=== PATIENT | female | born 1995 | race Caucasian/White ===

== ENCOUNTER 2016-12-28 23:29 | Emergency (ER) | payer OTHER ==
[2016-12-28 23:40] VITALS: TEMP 99.1
[2016-12-29 01:07] LABS: Appearance,Urine Clear (Clear); Bilirubin,Urine Negative (Negative); Glucose,Urine (UA) Negative (Negative); Ketones,Urine Negative (Negative); Leukocyte Esterase,Urine Negative (Negative); Nitrite,Urine Negative (Negative); PH, Urine 5.5 (5.0-8.0); Protein,Urine Negative (Negative); Specific Gravity,Urine 1.006 (1.001-1.035); UA Billing (MACRO vs. MICRO) CHEM; Urobilinogen,Urine <2.0 mg/dL (<2.0)
[2016-12-29] MEDS ORDERED: IBUPROFEN 600 MG TAB PO STA (01:21)
[2016-12-29] MEDS ORDERED: ACET/COD 300 MG/30 MG STARTER PACK 6 TAB BTL PO STA (01:21)
--- NOTE | 2016-12-29 01:34 | US ---
EXAM: US Pelvis, Transvaginal CLINICAL HISTORY: Reason: Pain TECHNIQUE: Real-time transvaginal pelvic ultrasound (complete) with image documentation. Transvaginal imaging was used for better evaluation of the endometrium and adnexa. COMPARISON: None FINDINGS: Uterus/cervix: Uterus is retroverted with a length of 8 cm. Normal junctional zone. Endometrium is measured at 1.1 cm thickness, likely slightly overestimated though still within normal range. No myometrial mass. Right ovary: The right ovary measures 2.4 x 1.9 x 1.37 m and demonstrate small normal follicles and appropriate Doppler flow. Left ovary: Left ovary measures 3.6 x 3.0 x 3.0 cm. There is a dominant cyst of the left ovary measuring 3 cm length with a small septation, likely physiologic. There is normal flow to the left ovary. Free fluid: Mild free fluid, likely physiologic. Bladder: Empty bladder which cannot be evaluated with this probe. IMPRESSION: Mild free fluid, likely physiologic given the patient age. 3 cm benign cyst in the left ovary.
[2016-12-29] MEDS ORDERED: cefTRIAXone 250 MG VIAL IM STA (01:46)
[2016-12-29] MEDS ORDERED: AZITHROMYCIN 500 MG TAB PO STA (01:46)
[2016-12-29] MEDS ORDERED: ONDANSETRON 4 MG ODT STARTER PACK 2 TAB BTL PO STA (01:52)
--- NOTE | 2016-12-29 01:52 | ED ---
Abdominal Pain HPI - General Chief Complaint: Abdominal Pain Stated Complaint: pelvic pain,vomiting Time Seen by Provider: 12/29/16 00:19 Source: patient, RN notes reviewed Mode of arrival: ambulatory Limitations: no limitations - Related Data Home Medications Medication Instructions Recorded Confirmed Acetaminophen-Codeine 300-30mg 1 tab PO QID PRN 12/28/16 12/28/16 [Tylenol w/codeine #3] Cyclobenzaprine [Flexeril] 0.5 tab PO TID PRN 12/28/16 12/28/16 Previous Rx's Medication Instructions Recorded traMADol HCl [Ultram] 50 mg PO Q6H PRN #10 tab 12/29/16 Allergies Allergy/AdvReac Type Severity Reaction Status Date / Time No Known Allergies Allergy Verified 12/28/16 23:40 Review of Systems ROS Statement: Those systems with pertinent positive or pertinent negative responses have been documented in the HPI. ROS Other: All systems not noted in ROS Statement are negative. Past Medical History Past Medical History: Asthma History of Any Multi-Drug Resistant Organisms: None Reported Additional Past Surgical History / Comment(s): eye surgery Past Psychological History: No Psychological Hx Reported Smoking Status: Current every day smoker Past Alcohol Use History: None Reported Past Drug Use History: None Reported General Exam Limitations: no limitations Course Vital Signs 12/28/16 23:37 Temperature 99.1 F Pulse Rate 71 Respiratory 18 Rate Blood Pressure 116/63 O2 Sat by Pulse 100 Oximetry Medical Decision Making - Lab Data Lab Results 12/29/16 12/29/16 12/29/16 Range/Units 00:30 00:30 01:20 Urine Color Light Yellow Urine Appearance Clear (Clear) Urine pH 5.5 (5.0-8.0) Ur Specific [place] 1.006 (1.001-1.035) Urine Protein Negative (Negative) Urine Glucose (UA) Negative (Negative) Urine Ketones Negative (Negative) Urine Blood Negative (Negative) Urine Nitrite Negative (Negative) Urine Bilirubin Negative (Negative) Urine Urobilinogen <2.0 (<2.0) mg/dL Ur Leukocyte Esterase Negative (Negative) Urine HCG, Qual Not Detected (Not Detectd) Trichomonas Ag (Rapid) Negative (Negative) Disposition Clinical Impression: Cervicitis, Left ovarian cyst Disposition: HOME SELF-CARE Condition: Good Instructions: Cervicitis (ED) Additional Instructions: Patient advised to follow up with primary care provider and WHEEL BRAIDER. Take medication as prescribed. Return to the emergency department if any alarming signs or symptoms occur. Prescriptions: traMADol HCl [Ultram] 50 mg PO Q6H PRN #10 tab PRN Reason: Pain Referrals: Sara Bernard MD [STAFF PHYSICIAN] - 1-2 days Time of Disposition: 01:48
[2016-12-29 02:09] VITALS: BP 110/54; PULSE 78; RESP 16
== END 2016-12-29 02:23 | disposition home or self-care (01) ==
LOC: EC 23:29
DX: N72 Inflammatory disease of cervix uteri (principal); N83.202 Unspecified ovarian cyst, left side; R11.10 Vomiting, unspecified; F17.200 Nicotine dependence, unspecified, uncomplicated
CPT/HCPCS: 87591; 87491; 81003; 81025; 87808; 87070; 93975; 76830; 99284; 96372; J0696; S0119; 87205

== ENCOUNTER 2017-11-02 15:10 | Emergency (ER) | payer OTHER ==
[2017-11-02 15:27] VITALS: BP 109/68; PULSE 80; RESP 20; TEMP 98.1
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
== END 2017-11-02 16:40 | disposition home or self-care (01) ==
LOC: EC 15:10
DX: O9A.311 Physical abuse complicating pregnancy, first trimester (principal); O99.331 Smoking (tobacco) complicating pregnancy, first trimester; F17.200 Nicotine dependence, unspecified, uncomplicated; Z3A.14 14 weeks gestation of pregnancy; Y04.8XXA Assault by other bodily force, initial encounter; Y92.009 Unspecified place in unspecified non-institutional (private) residence as the place of occurrence of the external cause; Y07.59 Other non-family member, perpetrator of maltreatment and neglect
CPT/HCPCS: 99284

== ENCOUNTER 2017-12-08 02:46 | Emergency (ER) | payer OTHER ==
[2017-12-08] MEDS ORDERED: ACETAMINOPHEN TAB 500 MG TAB PO STA (03:17)
--- NOTE | 2017-12-08 03:27 | ED ---
General Adult HPI - General Source: patient, EMS, RN notes reviewed, old records reviewed Mode of arrival: EMS Limitations: no limitations <Geeta Brady - Last Filed: 12/08/17 03:17> <Andrey Dugan - Last Filed: 12/08/17 04:58> - General Chief complaint: Abdominal Pain Stated complaint: Fall Time Seen by Provider: 12/08/17 03:05 - History of Present Illness Initial comments: This is a 22-year-old female who presents to the emergency department with chief complaint of abdominal pain following a fall. Patient states that at 1 PM this evening she was walking down a set of stairs at work while carrying a large bag. She states that she slipped and landed flat on her stomach. Patient reports that she is currently 5 months . She states that since the incident she has been experiencing lower abdominal cramping. Denies any vaginal bleeding. States that the right side of her low back is painful. Denies saddle paresthesias or loss of bladder or bowel function. She states that she has been bearing weight and ambulating normally. Patient did present to [facility] where heart tones were normal. Patient was transferred to this facility because we have CLOSING AGENT coverage. Patient denies any other injuries or trauma. Denies recent fevers or chills, nausea or vomiting, diarrhea or constipation, dysuria or hematuria. (Geeta Brady) - Related Data Home Medications Medication Instructions Recorded Confirmed Acetaminophen-Codeine 300-30mg 1 tab PO QID PRN 12/28/16 12/28/16 [Tylenol w/codeine #3] Cyclobenzaprine [Flexeril] 0.5 tab PO TID PRN 12/28/16 12/28/16 Previous Rx's Medication Instructions Recorded traMADol HCl [Ultram] 50 mg PO Q6H PRN #10 tab 12/29/16 Xxo-Ymjr-Jafnx Acid 1 cap PO DAILY #30 cap 11/02/17 [-U Capsule (formulary)] Allergies Allergy/AdvReac Type Severity Reaction Status Date / Time No Known Allergies Allergy Verified 11/02/17 15:27 Review of Systems ROS Other: All systems not noted in ROS Statement are negative. <Geeta Brady - Last Filed: 12/08/17 03:17> ROS Other: All systems not noted in ROS Statement are negative. <TaniyaAndrey dennis - Last Filed: 12/08/17 04:58> ROS Statement: Those systems with pertinent positive or pertinent negative responses have been documented in the HPI. Past Medical History Past Medical History: Asthma Additional Past Medical History / Comment(s): scoliosis History of Any Multi-Drug Resistant Organisms: None Reported Additional Past Surgical History / Comment(s): eye surgery Past Psychological History: No Psychological Hx Reported Smoking Status: Current every day smoker Past Alcohol Use History: None Reported Past Drug Use History: None Reported <Geeta Brady - Last Filed: 12/08/17 03:17> General Exam Limitations: no limitations Back exam: Present: normal inspection, full ROM, tenderness (right lumbar region. no bruising, redness or swelling noted. ). Absent: vertebral tenderness <Geeta Brady - Last Filed: 12/08/17 03:17> <RitchieAndrey - Last Filed: 12/08/17 04:58> - General Exam Comments Initial Comments: General: Awake and alert, well-developed; in no apparent distress. Lying comfortably on ED stretcher. HEENT: Head atraumatic, normocephalic. Pupils are equal, round and reactive to light. Extraocular movements intact. Oropharynx moist without erythema or exudate. Neck: Supple. Normal ROM. Cardiovascular: Regular rate and rhythm. No murmurs, rubs or gallops. Chest symmetrical. Respiratory: Lungs clear to auscultation bilaterally. No wheezes, rales or rhonchi. Normal respiratory effort with no use of accessory muscles. Abdomen: Soft, non-tender, non-distended. No rigidity, rebound or guarding. Musculoskeletal: Normal ROM, no tenderness bilateral upper and lower extremities. Ambulating normally. Skin: [place], warm and dry without rashes or lesions. Neurological: Alert and oriented x3. CN II-XII grossly intact. Speech is fluent and answers are appropriate. No focal neuro deficits. Psychiatric: Normal mood and affect. No overt signs of depression or anxiety noted. (Geeta Brady) Vital Signs 12/08/17 02:49 Temperature 98.2 F Pulse Rate 75 Respiratory 19 Rate Blood Pressure 115/58 O2 Sat by Pulse 100 Oximetry Medical Decision Making - Lab Data Result diagrams: 12/08/17 03:22 12/08/17 03:22 <Andrey Dugan - Last Filed: 12/08/17 04:58> - Lab Data Lab Results 12/08/17 12/08/17 12/08/17 Range/Units 03:22 03:22 03:25 WBC 9.5 (3.8-10.6) k/uL RBC 3.64 L (3.80-5.40) m/uL Hgb 11.1 L (11.4-16.0) gm/dL Hct 33.1 L (34.0-46.0) % MCV 90.9 (80.0-100.0) fL MCH 30.6 (25.0-35.0) pg MCHC 33.7 (31.0-37.0) g/dL RDW 12.4 (11.5-15.5) % Plt Count 248 (150-450) k/uL Neutrophils % 72 % Lymphocytes % 23 % Monocytes % 4 % Eosinophils % 1 % Basophils % 0 % Neutrophils # 6.8 (1.3-7.7) k/uL Lymphocytes # 2.2 (1.0-4.8) k/uL Monocytes # 0.3 (0-1.0) k/uL Eosinophils # 0.1 (0-0.7) k/uL Basophils # 0.0 (0-0.2) k/uL Sodium 138 (137-145) mmol/L Potassium 3.6 (3.5-5.1) mmol/L Chloride 110 H (98-107) mmol/L Carbon Dioxide 19 L (22-30) mmol/L Anion Gap 9 mmol/L BUN 5 L (7-17) mg/dL Creatinine 0.38 L (0.52-1.04) mg/dL Est GFR (CKD-EPI)AfAm >90 (>60 ml/min/1.73 sqM) Est GFR (CKD-EPI)NonAf >90 (>60 ml/min/1.73 sqM) Glucose 74 (74-99) mg/dL Calcium 8.6 (8.4-10.2) mg/dL Total Bilirubin 0.4 (0.2-1.3) mg/dL AST 13 L (14-36) U/L ALT 23 (9-52) U/L Alkaline Phosphatase 71 (38-126) U/L Total Protein 5.8 L (6.3-8.2) g/dL Albumin 3.2 L (3.5-5.0) g/dL HCG, Quant 83217.5 mIU/mL Urine Color Light Yellow Urine Appearance Clear (Clear) Urine pH 6.5 (5.0-8.0) Ur Specific [place] 1.005 (1.001-1.035) Urine Protein Negative (Negative) Urine Glucose (UA) Negative (Negative) Urine Ketones Negative (Negative) Urine Blood Negative (Negative) Urine Nitrite Negative (Negative) Urine Bilirubin Negative (Negative) Urine Urobilinogen <2.0 (<2.0) mg/dL Ur Leukocyte Esterase Negative (Negative) Disposition <Geeta Brady - Last Filed: 12/08/17 03:17> Is patient prescribed a controlled substance at d/c from ED?: No - Out of Hospital Transfer - Req. Specs Out of Hospital Transfer - Requested Specifics: Other Non-Acute <Andrey Dugan - Last Filed: 12/08/17 04:58> Clinical Impression: Abdominal pain Disposition: OTHER INSTITUTION NOT DEFINED Condition: Fair Instructions: Abdominal Pain in (ED) Referrals: None,Stated [Primary Care Provider] - 1-2 days
[2017-12-08 03:31] LABS: Basophils % (A) 0 %; Eosinophils # (A) 0.1 k/uL (0-0.7); Eosinophils % (A) 1 %; HCT 33.1 % (34.0-46.0); HGB 11.1 gm/dL (11.4-16.0); Lymphocytes # (A) 2.2 k/uL (1.0-4.8); Lymphocytes % (A) 23 %; MCH 30.6 pg (25.0-35.0); MCHC 33.7 g/dL (31.0-37.0); MCV 90.9 fL (80.0-100.0); Mean Platelet Volume 6.8; Monocytes # (A) 0.3 k/uL (0-1.0); Monocytes % (A) 4 %; Neutrophils # (A) 6.8 k/uL (1.3-7.7); Neutrophils % (A) 72 %; Platelet Count 248 k/uL (150-450); RBC 3.64 m/uL (3.80-5.40); RDW 12.4 % (11.5-15.5); WBC 9.5 k/uL (3.8-10.6)
[2017-12-08 03:37] LABS: Appearance,Urine Clear (Clear); Bilirubin,Urine Negative (Negative); Blood,Urine Negative (Negative); Color,Urine Light Yellow; Glucose,Urine (UA) Negative (Negative); Ketones,Urine Negative (Negative); Leukocyte Esterase,Urine Negative (Negative); Nitrite,Urine Negative (Negative); PH, Urine 6.5 (5.0-8.0); Protein,Urine Negative (Negative); Specific Gravity,Urine 1.005 (1.001-1.035); Urobilinogen,Urine <2.0 mg/dL (<2.0)
[2017-12-08 03:40] LABS: ALT 23 U/L (9-52); AST 13 U/L (14-36); Albumin 3.2 g/dL (3.5-5.0); Alkaline Phosphatase 71 U/L (38-126); Anion Gap 9 mmol/L; Blood Urea Nitrogen 5 mg/dL (7-17); Calcium 8.6 mg/dL (8.4-10.2); Carbon Dioxide 19 mmol/L (22-30); Chloride 110 mmol/L (98-107); Glucose 74 mg/dL (74-99); Potassium 3.6 mmol/L (3.5-5.1); Sodium 138 mmol/L (137-145); Total Bilirubin 0.4 mg/dL (0.2-1.3); Total Protein 5.8 g/dL (6.3-8.2)
[2017-12-08 04:21] LABS: HCG,Quantitative Serum 27974.5 mIU/mL
--- NOTE | 2017-12-08 04:49 | US ---
EXAMINATION TYPE: US OB >= 14 wk fetus DATE OF EXAM: 12/08/2017 COMPARISON: None CLINICAL HISTORY: Pain Patient states falling on stomach a few hours. Cramping. No spotting TECHNIQUE: Transabdominal (TA) GESTATIONAL AGE / DATING Dates by LMP: (21 weeks/3 days) EDC: 04/17/2018 Dates by Current Scan: (20 weeks/6 days) EDC: 04/21/2018 SURVEY IUP: Single PLACENTA: Posterior PREVIA: No Previa QUYEN: 11.9 cm Normal CERVICAL LENGTH (transabdominal: norm > 3.0cm): 3.4 cm BIOMETRY PRESENTATION: Vertex LIE: Oblique BPD: 4.9 cm 20 weeks / 5 days HC: 18.6 cm 20 weeks / 6 days AC: 17.0 cm 22 weeks / 0 days FL: 3.4 cm 20 weeks / 6 days ESTIMATED WEIGHT IN GRAMS: 420.7 grams ESTIMATED WEIGHT IN LBS/OZ: 0 lbs. 15 oz. WEIGHT PERCENTAGE BASED ON ESTABLISHED DATES: 42.3% HC/AC: 1.1 Normal FL/AC: 20.2 HEART RATE: 149 bpm RHYTHM: Normal Single live IUP measuring 20 weeks 6 days. IMPRESSION: The ultrasound gestational age is 20 weeks 6 days. No complicating process seen.
[2017-12-08 05:32] VITALS: BP 101/61; PULSE 73; RESP 16; TEMP 98
== END 2017-12-08 06:00 | disposition short-term general hospital (02) ==
LOC: EC 02:46
DX: O99.89 Other specified diseases and conditions complicating pregnancy, childbirth and the puerperium (principal); R10.30 Lower abdominal pain, unspecified; M54.5 Low back pain; O99.332 Smoking (tobacco) complicating pregnancy, second trimester; F17.200 Nicotine dependence, unspecified, uncomplicated; Z3A.22 22 weeks gestation of pregnancy; W10.9XXA Fall (on) (from) unspecified stairs and steps, initial encounter; Y93.89 Activity, other specified; Y92.69 Other specified industrial and construction area as the place of occurrence of the external cause
CPT/HCPCS: 36415; 76805; 80053; 81003; 84702; 85025; 86900; 86901; 99285

== ENCOUNTER 2017-12-08 06:25 | Outpatient (CLI) | payer OTHER ==
--- NOTE | 2017-12-09 05:40 | P.PN ---
Progress Note - Text Progress Note Date: 12/09/17 Halley is a 22-year-old at 20 weeks gestation who was walking down stairs approximately 1 AM and [place] last 3 stairs. She relates that she was getting ready for work and was late for work and misstep itself forward on the steps planning on her belly. She had cramping and significant pain initially was brought to the emergency room. She is cleared to the emergency room and due to and negative blood type and concerns over continued cramping she was brought to labor and delivery. I did evaluate her myself and her pain was light to moderate time of my evaluation and she had not had any more specific pain slight contractions but was still having some pain in her abdomen. A Kleihauer- Betke was ordered and returned negative. After approximately 12 hours of monitoring and evaluation following her fall she was discharged home in stable condition with instructions to return with any bleeding or other problems including pain and she was to notify her ambulette driver immediately upon arriving home so they can readdress this should it change. Her vital signs were stable and she was afebrile. Her heart was regular her lungs were clear. An other than some mild tenderness on her abdomen there was no other symptoms or problems a I could find this time.
== END 2017-12-08 13:56 | disposition home or self-care (01) ==
LOC: FBPOP 06:25
PROVIDERS: ATTEND Obstetrics & Gynecology
DX: O26.892 Other specified pregnancy related conditions, second trimester (principal); Z3A.20 20 weeks gestation of pregnancy; R10.9 Unspecified abdominal pain
CPT/HCPCS: 99213